=== PATIENT | male | born 1955 | race Caucasian/White ===

== ENCOUNTER 2017-07-14 05:22 | Day surgery (SDC) | payer BC ==
[~2017-07-14] VITALS: Ht 190.5 cm; Wt 84.4 kg
[~2017-07-14 05:22] MED LIST: FISH OIL 1,2001 EAC4 PO; LUMIGAN 0.50 DROP/22 BOTH EYES; ONE DAILY TABL1 EAC1 PO; PRESERVISION A1 EAC2 PO; SAW PALMETTO450 MG PO; TURMERIC 500 M1 EACH PO
[2017-07-14 05:48] VITALS: BP 185/72
[2017-07-14] MEDS ORDERED: COLACE100 MG PO (09:24)
[2017-07-14] MEDS ORDERED: PERCOCET 5/31 TABLET PO (09:24)
[2017-07-14 10:23] VITALS: BP 144/64
[2017-07-14 11:27] VITALS: BP 122/64
[2017-07-14 13:25] VITALS: BP 161/77
== END 2017-07-14 13:55 | disposition home or self-care (01) ==
LOC: SDC
PROC: 0YU64JZ Supplement Left Inguinal Region with Synthetic Substitute, Percutaneous Endoscopic Approach (ICD-10-PCS; principal; 2017-07-14)
DX: K40.90 Unilateral inguinal hernia, without obstruction or gangrene, not specified as recurrent (principal); I10 Essential (primary) hypertension; I45.10 Unspecified right bundle-branch block; Z87.891 Personal history of nicotine dependence
CPT/HCPCS: C1727; C1781; J0131; J0690; J1100; J1170; J1885; J2250; J2405; J2710; J3010